=== PATIENT | male | born 1980 | race Caucasian/White ===

== ENCOUNTER 2017-08-21 12:29 | Day surgery (SDC) | payer OTHER ==
[~2017-08-21] VITALS: Ht 180.3 cm; Wt 110.3 kg
[2017-08-21] MEDS ORDERED: ZYRTEC 10MG10 MG PO (12:57)
[2017-08-21] MEDS ORDERED: PYRIDIUM 100MG100 MG PO (12:57)
[2017-08-21 13:15] VITALS: BP 136/89; PULSE 69; TEMP 98.3
[2017-08-21] MEDS ORDERED: FLONASE NASAL S16 GM NS (13:23)
[2017-08-21] MEDS ORDERED: MELATONIN5 M1 SL (13:23)
[2017-08-21 14:34] VITALS: BP 112/67; PULSE 61; TEMP 97.3
[2017-08-21 14:49] VITALS: BP 111/60; PULSE 60
[2017-08-21 15:04] VITALS: BP 105/78; PULSE 58
[2017-08-21 15:19] VITALS: BP 114/75; PULSE 60
[2017-08-21 15:49] VITALS: BP 115/74; PULSE 55
== END 2017-08-21 16:15 | disposition home or self-care (01) ==
LOC: SDCO 12:29
DX: N35.014 Post-traumatic urethral stricture, male, unspecified (principal); G47.33 Obstructive sleep apnea (adult) (pediatric); Z88.8 Allergy status to other drugs, medicaments and biological substances; Z82.49 Family history of ischemic heart disease and other diseases of the circulatory system
CPT/HCPCS: J0690; J1100; J2405; J2704; J3010; J7120